=== PATIENT | male | born 1945 | race Caucasian/White ===

== ENCOUNTER → 2018-12-29 | Outpatient (CLI) | payer MEDICARE, OTHER ==
[~2018-12-29] MED LIST: ASPI81CH PO; ASPI81EC PO; Aspir 8181 MG; CEPH250A PO; CLOBET30L TP; Chondroitin Su250 MG PO; Cipro500 MG PO; FERR325 PO; FINA5 PO; FURO80 PO; Fluoxetine HCl10 MG PO; GLUC500 PO; HYDACE5325 PO; HYDR1TAB94 PO; IBUP600 PO; LAVAP17G PO; LISHYD2025 PO; LISI5 PO; MELO7.5 PO; MIRT15 PO; POLY500 PO; POTA10T PO; POTCHL20ER PO; TAMS.4ER PO; VOLTAREN GEL 1% TOP
== END | disposition home or self-care (01) ==
LOC: LAB SHORT 12:10 → LAB EV 12:10
DX: N39.0 Urinary tract infection, site not specified (principal)
CPT/HCPCS: 87077; 87086; 87186

== ENCOUNTER → 2020-07-05 | Outpatient (CLI) | payer MEDICARE, OTHER ==
[2020-07-05 18:05] LABS: Source, Urine Clean Catch
[2020-07-05 18:18] LABS: Appearance, Urine Clear (Clear); Bacteria Not Seen /hpf; Bilirubin, Urine Neg (Neg); Blood, Urine Neg (Neg); Color, Urine Yellow (P-Yellow); Glucose Qualitative, Urine Neg (Normal); Ketones, Urine Neg (Neg); Leukocyte Esterase, Urine Neg (Neg); Nitrite, Urine Pos (Neg); Protein, Urine Neg (Neg); Red Blood Cells, Urine Not Seen /hpf (0-2); Squamous Epithelial Cells Rare /hpf (Few); Urobilinogen, Urine NORM (Normal); White Blood Cells, Urine 0-2 /hpf (0-5)
== END | disposition home or self-care (01) ==
LOC: LAB EV 17:05 → LAB SHORT 17:05
PROVIDERS: Physician Assistant
DX: R30.0 Dysuria (principal)
CPT/HCPCS: 81001; 87077; 87086; 87186

== ENCOUNTER → 2020-07-25 | Outpatient (CLI) | payer MEDICARE, OTHER ==
[2020-07-25 13:03] LABS: Source, Urine Voided
[2020-07-25 14:41] LABS: Appearance, Urine Clear (Clear); Bilirubin, Urine Neg (Neg); Blood, Urine Neg (Neg); Color, Urine Yellow (P-Yellow); Glucose Qualitative, Urine Neg (Normal); Ketones, Urine Neg (Neg); Leukocyte Esterase, Urine Neg (Neg); Nitrite, Urine Neg (Neg); Protein, Urine Neg (Neg); Urobilinogen, Urine NORM (Normal)
== END | disposition home or self-care (01) ==
LOC: LAB SHORT 12:53 → LAB EV 12:53
PROVIDERS: Physician Assistant
DX: N39.0 Urinary tract infection, site not specified (principal)
CPT/HCPCS: 81003

== ENCOUNTER → 2020-10-08 | Outpatient (CLI) | payer MEDICARE, OTHER ==
[2020-10-08 11:09] LABS: Source, Urine Clean Catch
[2020-10-08 12:24] LABS: Appearance, Urine Clear (Clear); Bilirubin, Urine Neg (Neg); Blood, Urine Neg (Neg); Color, Urine Yellow (P-Yellow); Glucose Qualitative, Urine Neg (Normal); Ketones, Urine Neg (Neg); Leukocyte Esterase, Urine Neg (Neg); Nitrite, Urine Neg (Neg); Protein, Urine Neg (Neg); Specific Gravity, Urine 1.015 (1.003-1.022); Urobilinogen, Urine NORM (Normal)
== END | disposition home or self-care (01) ==
LOC: LAB SHORT 10:10 → LAB EV 10:10
PROVIDERS: Physician Assistant
DX: N39.0 Urinary tract infection, site not specified (principal)
CPT/HCPCS: 81003

== ENCOUNTER → 2021-02-11 | Outpatient (CLI) | payer MEDICARE, OTHER ==
[2021-02-11 13:39] LABS: Source, Urine Voided
[2021-02-11 16:49] LABS: Appearance, Urine Clear (Clear); Bilirubin, Urine Neg (Neg); Blood, Urine Neg (Neg); Glucose Qualitative, Urine Neg (Neg); Ketones, Urine Neg (Neg); Leukocyte Esterase, Urine Neg (Neg); Nitrite, Urine Neg (Neg); Protein, Urine Neg (Neg); Urobilinogen, Urine NORM (Normal)
[2021-02-11 17:20] LABS: Color, Urine No Color (P-Yellow)
[2021-02-11 17:21] LABS: Specific Gravity, Urine 1.005 (1.003-1.022)
== END | disposition home or self-care (01) ==
LOC: LAB SHORT 12:00
PROVIDERS: Family Medicine
DX: N39.0 Urinary tract infection, site not specified (principal); N40.1 Benign prostatic hyperplasia with lower urinary tract symptoms; N13.8 Other obstructive and reflux uropathy; R32 Unspecified urinary incontinence; E11.40 Type 2 diabetes mellitus with diabetic neuropathy, unspecified; Z46.6 Encounter for fitting and adjustment of urinary device
CPT/HCPCS: 81003

== ENCOUNTER → 2021-03-26 | Outpatient (CLI) | payer MEDICARE, OTHER ==
[2021-03-26 12:22] LABS: BASOPHILS ABSOLUTE AUTO 0.06 K/mm3 (0.00-0.23); BASOPHILS PERCENT AUTO 1 % (0-2); EOSINOPHILS ABSOLUTE AUTO 0.28 K/mm3 (0.00-0.68); EOSINOPHILS PERCENT AUTO 5 % (0-6); Hematocrit 41.7 % (37.0-53.0); Hemoglobin 13.9 g/dL (13.5-17.5); IMMATURE GRAN ABSOLUTE AUTO 0.05 K/mm3 (0.00-0.10); IMMATURE GRAN PERCENT AUTO 1 % (0-1); LYMPHOCYTES ABSOLUTE AUTO 1.52 K/mm3 (0.84-5.20); LYMPHOCYTES PERCENT AUTO 26 % (21-46); MONOCYTES ABSOLUTE AUTO 0.87 K/mm3 (0.16-1.47); MONOCYTES PERCENT AUTO 15 % (4-13); Mean Corpuscular HGB 31.4 pg (26.0-34.0); Mean Corpuscular HGB Conc 33.3 g/dL (31.5-36.5); Mean Corpuscular Volume 94 fL (80-100); Mean Platelet Volume 11.2 fL (9.1-12.4); NEUTROPHILS PERCENT AUTO 53 % (41-73); Platelet Count 199 K/mm3 (150-400); RDW Coefficient Variation 13.1 % (11.7-14.2); RDW Standard Deviation 45.1 fL (35.1-46.3); Red Blood Cell Count 4.43 M/mm3 (4.30-5.90); White Blood Cell Count 5.88 K/mm3 (4.00-11.30)
[2021-03-26 14:05] LABS: Alanine Aminotransfer (ALT/SGP 23 U/L (12-78); Albumin, Blood 3.5 g/dL (3.4-5.0); Albumin/Globulin Ratio 1.2 (0.8-1.8); Alk Phos 59 U/L (50-136); Anion Gap 4 mmol/L (6-16); Aspartate Aminotrans (AST/SGOT 15 U/L (12-37); Blood Urea Nitrogen 18 mg/dL (8-24); Bun/Creatinine Ratio 14.2 (12.0-20.0); CHOL/HDL RATIO 3.3; CO2, Blood 27 mmol/L (21-32); Calcium, Blood 8.4 mg/dL (8.5-10.1); Chloride, Blood 112 mmol/L (98-108); Cholesterol 129 mg/dL (50-200); Creatinine, Blood 1.27 mg/dL (0.60-1.20); Globulin, Blood 2.9 g/dL (2.2-4.0); Glomerular Filtration Rate 59 (60-); Glucose, Blood 75 mg/dL (70-99); HDL Cholesterol 39 mg/dL (>39); Low Density Lipoprotein Chol 80 mg/dL (0-110); Prostate Specific Antigen 0.744 ng/mL (0.000-4.000); Sodium, Blood 143 mmol/L (136-145); Total Protein, Blood 6.4 g/dL (6.4-8.2); Triglycerides 51 mg/dL (30-160); Very Low Density Lipoprot Chol 10 mg/dL (6-32)
== END | disposition home or self-care (01) ==
LOC: LAB SHORT 10:11 → LAB 10:11
PROVIDERS: Physician Assistant
DX: Z12.5 Encounter for screening for malignant neoplasm of prostate (principal); E11.42 Type 2 diabetes mellitus with diabetic polyneuropathy; E78.5 Hyperlipidemia, unspecified; I10 Essential (primary) hypertension; D64.9 Anemia, unspecified
CPT/HCPCS: 80053; 80061; 83036; 85025; G0103

== ENCOUNTER → 2021-05-23 | Outpatient (CLI) | payer MEDICARE, OTHER ==
[2021-05-23 15:58] LABS: BASOPHILS ABSOLUTE AUTO 0.06 K/mm3 (0.00-0.23); BASOPHILS PERCENT AUTO 1 % (0-2); EOSINOPHILS ABSOLUTE AUTO 0.14 K/mm3 (0.00-0.68); EOSINOPHILS PERCENT AUTO 1 % (0-6); Hematocrit 39.4 % (37.0-53.0); IMMATURE GRAN ABSOLUTE AUTO 0.05 K/mm3 (0.00-0.10); IMMATURE GRAN PERCENT AUTO 1 % (0-1); LYMPHOCYTES PERCENT AUTO 12 % (21-46); MONOCYTES ABSOLUTE AUTO 1.31 K/mm3 (0.16-1.47); MONOCYTES PERCENT AUTO 13 % (4-13); Mean Corpuscular HGB 31.3 pg (26.0-34.0); Mean Corpuscular Volume 95 fL (80-100); Mean Platelet Volume 11.6 fL (9.1-12.4); NEUTROPHILS ABSOLUTE AUTO 7.48 K/mm3 (1.96-9.15); NEUTROPHILS PERCENT AUTO 73 % (41-73); Platelet Count 230 K/mm3 (150-400); RDW Coefficient Variation 13.1 % (11.7-14.2); RDW Standard Deviation 45.6 fL (35.1-46.3); Red Blood Cell Count 4.15 M/mm3 (4.30-5.90); White Blood Cell Count 10.24 K/mm3 (4.00-11.30)
[2021-05-23 15:59] LABS: Alanine Aminotransfer (ALT/SGP 32 U/L (12-78); Albumin, Blood 3.2 g/dL (3.4-5.0); Albumin/Globulin Ratio 1.1 (0.8-1.8); Alk Phos 54 U/L (50-136); Anion Gap 4 mmol/L (6-16); Aspartate Aminotrans (AST/SGOT 38 U/L (12-37); Bilirubin, Total 0.9 mg/dL (0.1-1.0); Blood Urea Nitrogen 15 mg/dL (8-24); Bun/Creatinine Ratio 13.2 (12.0-20.0); CHOL/HDL RATIO 3.3; CO2, Blood 27 mmol/L (21-32); Calcium, Blood 8.6 mg/dL (8.5-10.1); Chloride, Blood 112 mmol/L (98-108); Cholesterol 117 mg/dL (50-200); Creatinine, Blood 1.14 mg/dL (0.60-1.20); Globulin, Blood 2.8 g/dL (2.2-4.0); Glomerular Filtration Rate >60 (60-); Glucose, Blood 76 mg/dL (70-99); HDL Cholesterol 35 mg/dL (>39); LDL/HDL RATIO 2.1; Low Density Lipoprotein Chol 74 mg/dL (0-110); Potassium, Blood 4.5 mmol/L (3.5-5.5); Sodium, Blood 143 mmol/L (136-145); Triglycerides 39 mg/dL (30-160); Very Low Density Lipoprot Chol 7 mg/dL (6-32)
== END | disposition home or self-care (01) ==
LOC: LAB SHORT 09:20 → LAB 09:20
PROVIDERS: Family Medicine
DX: E11.42 Type 2 diabetes mellitus with diabetic polyneuropathy (principal); N40.1 Benign prostatic hyperplasia with lower urinary tract symptoms; E78.5 Hyperlipidemia, unspecified; D64.9 Anemia, unspecified; M10.9 Gout, unspecified; I10 Essential (primary) hypertension
CPT/HCPCS: 80053; 80061; 83036; 85025

== ENCOUNTER → 2021-08-08 | Outpatient (CLI) | payer MEDICARE, OTHER | END | disposition home or self-care (01) | LOC: LAB SHORT 16:42 → LAB 16:42 | DX: R31.9 Hematuria, unspecified (principal) | CPT/HCPCS: 87077; 87086; 87186 ==

== ENCOUNTER 2021-10-24 06:40 | Day surgery (SDC) | payer MEDICARE, OTHER ==
[~2021-10-24] VITALS: Ht 167.6 cm; Wt 93.1 kg
[~2021-10-24 06:40] MED LIST changes: +AMLO5 PO; -Aspir 8181 MG; +Aspir 8181 MG PO; +Colace100 MG PO; -FERR325 PO; +FERSU300 PO; +QUET100 PO; +TRIM100 PO; +ZESTRIL40 M2 PO
--- NOTE | 2021-10-24 09:32 | NUR ---
0910 PATIENT RETURNED FROM THE [facility]ATHLAB S/P SUPRAPUBIC CATHETER PLACEMENT. STAYFIX IN PLACE AND DRAINBAG CONNECTED. DRAINING CLEAR PALE YELLOW URINE. PATIENT CONNECTED TO THE MONITOR AND CALL LIGHT IN REACH. SIDE RAILS UP X 2. VVS. NO PAIN NOTED. FAMILY AT THE BEDSIDE.
--- NOTE | 2021-10-24 10:29 | NUR ---
PATIENT ATE BREAKFAST WITH MINIAL ASSIST FROM THE BROTHER. VVS. NO NAUSEA NOTED. AFTER BREAKFAST PATIENT STAFF AND BROTHER ASSISTED PATIENT WITH DRESSING AND [facility] WAS CALLED. ONCE THEY ARRIVED PIV WAS REMOVED AND PRESSURE DRESSING WAS APPLIED TO THE PIV SITE. NO BLEEDING NOTED. PATIENT WAS TRANSFERRED TO HIS WHEELCHAIR POSITION AND DISCHARGED TO [facility]ULT HOME [facility]ARE FACILITY. ABDOMINAL BINDER WAS IN PLACE ORDERED. DISCHARGE INSTRUCTIONS WERE REVIEWED WITH THE BROTHER AND COPIES GIVEN.
== END 2021-10-24 10:30 | disposition home or self-care (01) ==
LOC: MHTC 06:40
DX: N32.0 Bladder-neck obstruction (principal); I10 Essential (primary) hypertension; E11.9 Type 2 diabetes mellitus without complications; Z79.899 Other long term (current) drug therapy
CPT/HCPCS: 76937; 99152; 99153; C1729; C1769; J2250; J3010; J7030; Q9967

== ENCOUNTER → 2022-02-06 | Outpatient (CLI) | payer MEDICARE, OTHER ==
[2022-02-06 10:38] LABS: BASOPHILS ABSOLUTE AUTO 0.05 K/mm3 (0.00-0.23); BASOPHILS PERCENT AUTO 1 % (0-2); EOSINOPHILS ABSOLUTE AUTO 0.16 K/mm3 (0.00-0.68); EOSINOPHILS PERCENT AUTO 2 % (0-6); Hematocrit 44.7 % (37.0-53.0); Hemoglobin 14.6 g/dL (13.5-17.5); IMMATURE GRAN ABSOLUTE AUTO 0.11 K/mm3 (0.00-0.10); IMMATURE GRAN PERCENT AUTO 1 % (0-1); LYMPHOCYTES ABSOLUTE AUTO 1.39 K/mm3 (0.84-5.20); LYMPHOCYTES PERCENT AUTO 18 % (21-46); MONOCYTES ABSOLUTE AUTO 0.94 K/mm3 (0.16-1.47); MONOCYTES PERCENT AUTO 12 % (4-13); Mean Corpuscular HGB 31.5 pg (26.0-34.0); Mean Corpuscular HGB Conc 32.7 g/dL (31.5-36.5); Mean Corpuscular Volume 96 fL (80-100); Mean Platelet Volume 11.6 fL (9.1-12.4); NEUTROPHILS ABSOLUTE AUTO 5.23 K/mm3 (1.96-9.15); NEUTROPHILS PERCENT AUTO 67 % (41-73); Platelet Count 215 K/mm3 (150-400); RDW Coefficient Variation 13.3 % (11.7-14.2); RDW Standard Deviation 48.2 fL (35.1-46.3); Red Blood Cell Count 4.64 M/mm3 (4.30-5.90); White Blood Cell Count 7.88 K/mm3 (4.00-11.30)
[2022-02-06 11:51] LABS: Alanine Aminotransfer (ALT/SGP 29 U/L (12-78); Albumin, Blood 3.4 g/dL (3.4-5.0); Albumin/Globulin Ratio 1.1 (0.8-1.8); Alk Phos 60 U/L (50-136); Anion Gap 5 mmol/L (6-16); Aspartate Aminotrans (AST/SGOT 15 U/L (12-37); Blood Urea Nitrogen 20 mg/dL (8-24); Bun/Creatinine Ratio 19.8 (12.0-20.0); CHOL/HDL RATIO 4.3; CO2, Blood 27 mmol/L (21-32); Calcium, Blood 8.3 mg/dL (8.5-10.1); Chloride, Blood 107 mmol/L (98-108); Cholesterol 142 mg/dL (50-200); Creatinine, Blood 1.01 mg/dL (0.60-1.20); Glomerular Filtration Rate >60 (60-); Glucose, Blood 82 mg/dL (70-99); HDL Cholesterol 33 mg/dL (>39); Iron Serum 151 ug/dL (65-175); LDL/HDL RATIO 2.8; Low Density Lipoprotein Chol 92 mg/dL (0-110); Percent Saturation 56.6 % (20.0-50.0); Potassium, Blood 4.3 mmol/L (3.5-5.5); Sodium, Blood 139 mmol/L (136-145); Thyroid Stimulating Hormone 0.625 uIU/mL (0.360-4.800); Total Iron Binding Capacity 267 ug/dL (250-450); Total Protein, Blood 6.4 g/dL (6.4-8.2); Triglycerides 84 mg/dL (30-160); Very Low Density Lipoprot Chol 16 mg/dL (6-32)
== END | disposition home or self-care (01) ==
LOC: LAB SHORT 09:43
PROVIDERS: Physician Assistant
DX: E11.42 Type 2 diabetes mellitus with diabetic polyneuropathy (principal); I10 Essential (primary) hypertension; E78.5 Hyperlipidemia, unspecified; D64.9 Anemia, unspecified
CPT/HCPCS: 80053; 80061; 83036; 83540; 83550; 84443; 85025

== ENCOUNTER 2022-02-19 12:15 | Day surgery (SDC) | payer MEDICARE, OTHER ==
[~2022-02-19] VITALS: Ht 175.3 cm; Wt 93.2 kg
--- NOTE | 2022-02-19 12:49 | NUR ---
02/19/22 1249 BERNICE TAVAREZ PT WITH ORGANIC BRAIN SYNDROME AND DEVELOPMENTAL DELAY. PT IS MOBILE IN , LIVES IN [facility] LOCALLY WITH BROTHER GUARDIAN/CAREGIVER. HE ACCOMPANIES HIM TODAY AND IS HISTORIAN FOR PT'S MEDICAL CONDITIONS.
--- NOTE | 2022-02-19 14:31 | NUR ---
02/19/22 1431 Alannah Galvez BUPIVICAINE 0.5% MIXED 1:1 WITH LIDOCAINE 1% TO CREATE A LOCAL SOLUTION.
--- NOTE | 2022-02-19 15:57 | NUR ---
02/19/22 1557 LUIS ANGEL FRASER PT NEEDED COMPLETE ASSIST FOR DRESSING AND TRANSFERRING. PT WAS STABLE AND HAD NO COMPLAIN OF PAIN.
== END 2022-02-19 15:55 | disposition home or self-care (01) ==
LOC: ORSCSDS 12:15
PROVIDERS: Podiatrist
PROC: 0QPR04Z Removal of Internal Fixation Device from Left Toe Phalanx, Open Approach (ICD-10-PCS; principal; 2022-02-19 13:30)
DX: T84.84XA Pain due to internal orthopedic prosthetic devices, implants and grafts, initial encounter (principal); I10 Essential (primary) hypertension; G47.33 Obstructive sleep apnea (adult) (pediatric); E11.9 Type 2 diabetes mellitus without complications; Z79.899 Other long term (current) drug therapy; Z79.82 Long term (current) use of aspirin
CPT/HCPCS: 82947; A9270; J0690; J1100; J2250; J2370; J2405; J2704; J3010; J7120

== ENCOUNTER → 2022-08-11 | Outpatient (CLI) | payer MEDICARE, OTHER ==
[2022-08-11 10:17] LABS: Source, Urine Straight Cath
[2022-08-11 10:54] LABS: Appearance, Urine Clear (Clear); Bilirubin, Urine Neg (Neg); Blood, Urine Neg (Neg); Color, Urine Yellow (P-Yellow); Glucose Qualitative, Urine Neg (Neg); Ketones, Urine Neg (Neg); Leukocyte Esterase, Urine 2+ (Neg); Nitrite, Urine Neg (Neg); Protein, Urine 1+ (Neg); Urobilinogen, Urine NORM (Normal); pH, Urine 6.5 (5.0-8.0)
[2022-08-11 11:03] LABS: Bacteria Mod /hpf; Red Blood Cells, Urine 0-2 /hpf (0-2); Squamous Epithelial Cells Few /hpf (Few)
== END ==
LOC: LAB SHORT 09:45 → LAB 09:45
PROVIDERS: Physician Assistant
DX: N39.0 Urinary tract infection, site not specified (principal)
CPT/HCPCS: 81001; 87077; 87086; 87186

== ENCOUNTER → 2022-10-29 | Outpatient (CLI) | payer MEDICARE, OTHER ==
[2022-10-29 13:13] LABS: C-REACTIVE PROTEIN, EXT RANGE <0.290 mg/dL (0.000-0.300)
[2022-10-29 13:22] LABS: Alanine Aminotransfer (ALT/SGP 22 U/L (12-78); Albumin, Blood 3.3 g/dL (3.4-5.0); Albumin/Globulin Ratio 1.2 (0.8-1.8); Alk Phos 53 U/L (50-136); Anion Gap 3 mmol/L (6-16); Aspartate Aminotrans (AST/SGOT 16 U/L (12-37); Bilirubin, Total 0.7 mg/dL (0.1-1.0); Blood Urea Nitrogen 16 mg/dL (8-24); Bun/Creatinine Ratio 16.6 (12.0-20.0); CO2, Blood 27 mmol/L (21-32); Calcium, Blood 8.5 mg/dL (8.5-10.1); Chloride, Blood 112 mmol/L (98-108); Creatinine, Blood 0.96 mg/dL (0.60-1.20); Globulin, Blood 2.8 g/dL (2.2-4.0); Glomerular Filtration Rate 82 (60-); Glucose, Blood 87 mg/dL (70-99); Potassium, Blood 3.8 mmol/L (3.5-5.5); Sodium, Blood 142 mmol/L (136-145); Total Protein, Blood 6.1 g/dL (6.4-8.2)
== END | disposition home or self-care (01) ==
LOC: LAB SHORT 09:46
PROVIDERS: Physician Assistant
DX: E78.5 Hyperlipidemia, unspecified (principal); N40.1 Benign prostatic hyperplasia with lower urinary tract symptoms; E11.9 Type 2 diabetes mellitus without complications; I10 Essential (primary) hypertension
CPT/HCPCS: 80053; 83036; 84153; 86140

== ENCOUNTER → 2022-12-31 | Outpatient (CLI) | payer MEDICARE, OTHER ==
[2022-12-31 14:41] LABS: CHOL/HDL RATIO 3.7; Cholesterol 136 mg/dL (50-200); HDL Cholesterol 37 mg/dL (>39); LDL/HDL RATIO 2.4; Low Density Lipoprotein Chol 88 mg/dL (0-110); Triglycerides 54 mg/dL (30-160); Very Low Density Lipoprot Chol 10 mg/dL (6-32)
== END | disposition home or self-care (01) ==
LOC: LAB 10:50 → LAB SHORT 10:50
PROVIDERS: Physician Assistant
DX: E78.5 Hyperlipidemia, unspecified (principal)
CPT/HCPCS: 80061

== ENCOUNTER → 2023-07-29 | Outpatient (CLI) | payer MEDICARE, OTHER ==
[2023-07-29 16:37] LABS: Source, Urine Voided
[2023-07-29 18:50] LABS: Bilirubin, Urine Neg (Neg); Blood, Urine 4+ (Neg); Color, Urine Yellow (P-Yellow); Glucose Qualitative, Urine Neg (Neg); Ketones, Urine Neg (Neg); Leukocyte Esterase, Urine 1+ (Neg); Nitrite, Urine Neg (Neg); Protein, Urine 1+ (Neg); Specific Gravity, Urine 1.015 (1.003-1.022); Urobilinogen, Urine NORM (Normal)
[2023-07-29 19:39] LABS: Appearance, Urine Hazy (Clear)
[2023-07-29 19:44] LABS: Amorphous Light (0-Heavy); Bacteria Many /hpf; Mucus Light (0-Heavy); Squamous Epithelial Cells Few /hpf (Few)
== END ==
LOC: LAB 16:35 → LAB SHORT 16:35
PROVIDERS: Physician Assistant
DX: R30.0 Dysuria (principal)
CPT/HCPCS: 81001; 87077; 87086; 87186

== ENCOUNTER → 2023-11-26 | Outpatient (CLI) | payer MEDICARE, OTHER ==
[2023-11-26 14:21] LABS: BASOPHILS ABSOLUTE AUTO 0.03 K/mm3 (0.00-0.23); BASOPHILS PERCENT AUTO 1 % (0-2); EOSINOPHILS ABSOLUTE AUTO 0.14 K/mm3 (0.00-0.68); EOSINOPHILS PERCENT AUTO 3 % (0-6); Hematocrit 36.9 % (37.0-53.0); Hemoglobin 12.1 g/dL (13.5-17.5); IMMATURE GRAN ABSOLUTE AUTO 0.02 K/mm3 (0.00-0.10); IMMATURE GRAN PERCENT AUTO 0 % (0-1); LYMPHOCYTES ABSOLUTE AUTO 1.08 K/mm3 (0.84-5.20); LYMPHOCYTES PERCENT AUTO 23 % (21-46); MONOCYTES ABSOLUTE AUTO 0.56 K/mm3 (0.16-1.47); MONOCYTES PERCENT AUTO 12 % (4-13); Mean Corpuscular HGB 31.9 pg (26.0-34.0); Mean Corpuscular HGB Conc 32.8 g/dL (31.5-36.5); Mean Corpuscular Volume 97 fL (80-100); Mean Platelet Volume 11.5 fL (9.1-12.4); NEUTROPHILS ABSOLUTE AUTO 2.93 K/mm3 (1.96-9.15); NEUTROPHILS PERCENT AUTO 62 % (41-73); Platelet Count 181 K/mm3 (150-400); RDW Coefficient Variation 13.8 % (11.7-14.2); RDW Standard Deviation 49.8 fL (35.1-46.3); Red Blood Cell Count 3.79 M/mm3 (4.30-5.90); White Blood Cell Count 4.76 K/mm3 (4.00-11.30)
[2023-11-28 01:06] LABS: A/G RATIO 1.9 (1.2-2.2); BILIRUBIN, TOTAL 0.5 mg/dL (0.0-1.2); CALCIUM, SERUM 8.8 mg/dL (8.6-10.2); CREATININE, SERUM 0.98 mg/dL (0.76-1.27); GLOBULIN, TOTAL 1.9 g/dL (1.5-4.5); POTASSIUM, SERUM 4.8 mmol/L (3.5-5.2); PROTEIN, TOTAL, SERUM 5.6 g/dL (6.0-8.5)
== END ==
LOC: LAB SHORT 12:49 → LAB 12:49
PROVIDERS: Physician Assistant
DX: E11.42 Type 2 diabetes mellitus with diabetic polyneuropathy (principal); I10 Essential (primary) hypertension
CPT/HCPCS: 80053; 83036; 85025

== ENCOUNTER → 2024-01-25 | Outpatient (CLI) | payer MEDICARE, OTHER ==
[2024-01-25 13:29] LABS: Source, Urine Voided
[2024-01-25 14:29] LABS: Appearance, Urine Clear (Clear); Bilirubin, Urine Neg (Neg); Blood, Urine 4+ (Neg); Color, Urine Yellow (P-Yellow); Glucose Qualitative, Urine Neg (Neg); Ketones, Urine Neg (Neg); Leukocyte Esterase, Urine 2+ (Neg); Nitrite, Urine Neg (Neg); Protein, Urine 2+ (Neg); Specific Gravity, Urine 1.015 (1.003-1.022); Urobilinogen, Urine NORM (Normal)
[2024-01-25 14:49] LABS: Bacteria Few /hpf; Squamous Epithelial Cells Rare /hpf (Few)
== END | disposition home or self-care (01) ==
LOC: LAB SHORT 12:45 → LAB 12:45
PROVIDERS: Physician Assistant
DX: N39.0 Urinary tract infection, site not specified (principal)
CPT/HCPCS: 81001; 87077; 87086; 87186

== ENCOUNTER → 2024-03-24 | Outpatient (CLI) | payer MEDICARE, OTHER ==
[2024-03-24 11:27] LABS: Source, Urine Voided
[2024-03-24 13:14] LABS: Appearance, Urine Hazy (Clear); Bilirubin, Urine Neg (Neg); Blood, Urine 1+ (Neg); Color, Urine Yellow (P-Yellow); Glucose Qualitative, Urine Neg (Neg); Ketones, Urine Neg (Neg); Leukocyte Esterase, Urine 2+ (Neg); Nitrite, Urine Neg (Neg); Protein, Urine Neg (Neg); Urobilinogen, Urine NORM (Normal)
[2024-03-24 13:24] LABS: Amorphous Mod (0-Heavy); Bacteria Few /hpf; Squamous Epithelial Cells Rare /hpf (Few)
== END ==
LOC: LAB 11:25 → LAB SHORT 11:25
PROVIDERS: Physician Assistant
DX: N40.1 Benign prostatic hyperplasia with lower urinary tract symptoms (principal); N13.8 Other obstructive and reflux uropathy; N39.0 Urinary tract infection, site not specified; Z43.5 Encounter for attention to cystostomy
CPT/HCPCS: 81001; 87077; 87086; 87186

== ENCOUNTER → 2024-04-24 | Outpatient (CLI) | payer MEDICARE, OTHER ==
[2024-04-24 16:57] LABS: Source, Urine Voided
[2024-04-24 17:10] LABS: Appearance, Urine Hazy (Clear); Bilirubin, Urine Neg (Neg); Blood, Urine 2+ (Neg); Glucose Qualitative, Urine Neg (Neg); Ketones, Urine Neg (Neg); Leukocyte Esterase, Urine 3+ (Neg); Nitrite, Urine Neg (Neg); Protein, Urine Neg (Neg); Specific Gravity, Urine 1.005 (1.003-1.022); Urobilinogen, Urine NORM (Normal)
[2024-04-24 17:47] LABS: Color, Urine Pale Yellow (P-Yellow)
[2024-04-24 17:48] LABS: Bacteria Mod /hpf; Red Blood Cells, Urine 0-2 /hpf (0-2); Squamous Epithelial Cells Few /hpf (Few)
== END | disposition home or self-care (01) ==
LOC: LAB 14:53 → LAB SHORT 14:53
PROVIDERS: Physician Assistant
DX: N40.1 Benign prostatic hyperplasia with lower urinary tract symptoms (principal); R32 Unspecified urinary incontinence
CPT/HCPCS: 81001; 87077; 87086; 87186

== ENCOUNTER → 2024-09-19 | Outpatient (CLI) | payer MEDICARE, OTHER ==
[2024-09-19 16:44] LABS: Source, Urine Voided
[2024-09-19 17:40] LABS: Appearance, Urine Hazy (Clear); Bilirubin, Urine Neg (Neg); Blood, Urine 5+ (Neg); Glucose Qualitative, Urine Neg (Neg); Ketones, Urine Neg (Neg); Leukocyte Esterase, Urine 1+ (Neg); Nitrite, Urine Neg (Neg); Protein, Urine 1+ (Neg); Urobilinogen, Urine NORM (Normal); pH, Urine 6.5 (5.0-8.0)
[2024-09-19 18:05] LABS: Color, Urine Pale Yellow (P-Yellow)
[2024-09-19 18:07] LABS: Bacteria Many /hpf; Renal Epithelial Few /hpf (0-Rare); Squamous Epithelial Cells Mod /hpf (Few)
== END ==
LOC: LAB SHORT 16:15 → LAB 16:15
PROVIDERS: Physician Assistant
DX: N39.0 Urinary tract infection, site not specified (principal)
CPT/HCPCS: 81001; 87086

== ENCOUNTER 2025-01-28 10:41 | Emergency (ER) | payer MEDICARE, OTHER ==
[~2025-01-28] VITALS: Ht 182.9 cm; Wt 64.9 kg
[2025-01-28 10:46] VITALS: BP 129/71
[2025-01-28 11:41] LABS: BASOPHILS ABSOLUTE AUTO 0.05 K/mm3 (0.00-0.23); BASOPHILS PERCENT AUTO 1 % (0-2); EOSINOPHILS ABSOLUTE AUTO 0.08 K/mm3 (0.00-0.68); EOSINOPHILS PERCENT AUTO 1 % (0-6); Hematocrit 36.5 % (37.0-53.0); Hemoglobin 12.4 g/dL (13.5-17.5); IMMATURE GRAN ABSOLUTE AUTO 0.06 K/mm3 (0.00-0.10); IMMATURE GRAN PERCENT AUTO 1 % (0-1); LYMPHOCYTES ABSOLUTE AUTO 1.11 K/mm3 (0.84-5.20); LYMPHOCYTES PERCENT AUTO 12 % (21-46); MONOCYTES ABSOLUTE AUTO 1.26 K/mm3 (0.16-1.47); MONOCYTES PERCENT AUTO 13 % (4-13); Mean Corpuscular HGB 31.7 pg (26.0-34.0); Mean Corpuscular Volume 93 fL (80-100); NEUTROPHILS ABSOLUTE AUTO 6.81 K/mm3 (1.96-9.15); NEUTROPHILS PERCENT AUTO 73 % (41-73); RDW Coefficient Variation 14.4 % (11.7-14.2); RDW Standard Deviation 49.3 fL (35.1-46.3); Red Blood Cell Count 3.91 M/mm3 (4.30-5.90); White Blood Cell Count 9.37 K/mm3 (4.00-11.30)
[2025-01-28] MEDS ORDERED: NS 1,000 ML IV SCH (11:50)
[2025-01-28 11:52] LABS: Albumin, Blood 3.1 g/dL (3.4-5.0); Bilirubin, Total 1.1 mg/dL (0.1-1.0); Bun/Creatinine Ratio 18.8 (12.0-20.0); Calcium, Blood 8.2 mg/dL (8.5-10.1); Creatinine, Blood 1.01 mg/dL (0.60-1.20); Potassium, Blood 4.5 mmol/L (3.5-5.5); Total Protein, Blood 6.1 g/dL (6.4-8.2)
[2025-01-28 12:00] LABS: Mean Platelet Volume 11.6 fL (9.1-12.4); Platelet Count 161 K/mm3 (150-400)
[2025-01-28 12:20] LABS: Source, Urine Suprapubic Cath
[2025-01-28 12:23] LABS: Appearance, Urine Hazy (Clear); Bilirubin, Urine Neg (Neg); Blood, Urine 3+ (Neg); Color, Urine Yellow (P-Yellow); Glucose Qualitative, Urine Neg (Neg); Ketones, Urine Neg (Neg); Leukocyte Esterase, Urine 3+ (Neg); Nitrite, Urine Neg (Neg); Protein, Urine 2+ (Neg); Specific Gravity, Urine 1.015 (1.003-1.022); Urobilinogen, Urine NORM (Normal)
[2025-01-28 12:31] LABS: White Blood Cells, Urine 25-50 /hpf (0-5)
[2025-01-28 12:32] LABS: Bacteria Many /hpf; Squamous Epithelial Cells Not Seen /hpf (Few); Transitional Epithelial Cells Rare /hpf (0-Rare)
[2025-01-28 12:33] LABS: Renal Epithelial Few /hpf (0-Rare)
[2025-01-28] MEDS ORDERED: CEFP200 PO (12:51)
[2025-02-01] MEDS ORDERED: AMOCLA875 PO (09:15)
== END 2025-01-28 15:05 | disposition home or self-care (01) ==
LOC: ER 10:41
PROVIDERS: Student in an Organized Health Care Education/Training Program
DX: N39.0 Urinary tract infection, site not specified (principal); Z87.891 Personal history of nicotine dependence; I10 Essential (primary) hypertension; K21.9 Gastro-esophageal reflux disease without esophagitis; Z79.84 Long term (current) use of oral hypoglycemic drugs; Z79.891 Long term (current) use of opiate analgesic; Z79.1 Long term (current) use of non-steroidal anti-inflammatories (NSAID); Z79.82 Long term (current) use of aspirin; Z79.83 Long term (current) use of bisphosphonates; Z79.899 Other long term (current) drug therapy
CPT/HCPCS: 51705; 80053; 81001; 83605; 85025; 87077; 87086; 87186; 93005; 93010; 96360-59; 99284-25; J7030

== ENCOUNTER 2025-02-16 16:32 | Inpatient (IN) | payer MEDICARE, OTHER ==
[~2025-02-16] VITALS: Ht 172.7 cm; Wt 74.0 kg
[~2025-02-16 16:32] MED LIST changes: +AMOCLA875 PO; +CEFP200 PO
[2025-02-16 17:22] LABS: BASOPHILS ABSOLUTE AUTO 0.05 K/mm3 (0.00-0.23); BASOPHILS PERCENT AUTO 0 % (0-2); EOSINOPHILS PERCENT AUTO 0 % (0-6); Hemoglobin 12.2 g/dL (13.5-17.5); IMMATURE GRAN ABSOLUTE AUTO 0.16 K/mm3 (0.00-0.10); IMMATURE GRAN PERCENT AUTO 1 % (0-1); LYMPHOCYTES ABSOLUTE AUTO 0.45 K/mm3 (0.84-5.20); LYMPHOCYTES PERCENT AUTO 2 % (21-46); MONOCYTES ABSOLUTE AUTO 1.58 K/mm3 (0.16-1.47); MONOCYTES PERCENT AUTO 8 % (4-13); Mean Corpuscular HGB 32.5 pg (26.0-34.0); Mean Corpuscular HGB Conc 34.9 g/dL (31.5-36.5); Mean Corpuscular Volume 93 fL (80-100); Mean Platelet Volume 11.3 fL (9.1-12.4); NEUTROPHILS ABSOLUTE AUTO 17.55 K/mm3 (1.96-9.15); NEUTROPHILS PERCENT AUTO 89 % (41-73); Platelet Count 211 K/mm3 (150-400); RDW Coefficient Variation 13.9 % (11.7-14.2); RDW Standard Deviation 47.5 fL (35.1-46.3); Red Blood Cell Count 3.75 M/mm3 (4.30-5.90); White Blood Cell Count 19.79 K/mm3 (4.00-11.30)
[2025-02-16 17:29] LABS: Albumin, Blood 3.7 g/dL (3.4-5.0); Albumin/Globulin Ratio 1.3 (0.8-1.8); Bilirubin, Total 1.6 mg/dL (0.1-1.0); Bun/Creatinine Ratio 19.2 (12.0-20.0); Calcium, Blood 8.9 mg/dL (8.5-10.1); Creatinine, Blood 0.94 mg/dL (0.60-1.20); Globulin, Blood 2.9 g/dL (2.2-4.0); Potassium, Blood 4.6 mmol/L (3.5-5.5); Total Protein, Blood 6.6 g/dL (6.4-8.2)
[2025-02-16 18:51] LABS: Influenza A, PCR NEGATIVE (NEGATIVE); Influenza B, PCR NEGATIVE (NEGATIVE); Resp Syncytial Virus, PCR NEGATIVE (NEGATIVE); SARS-Cov-2 (COVID-19) PCR, MMC NEGATIVE (NEGATIVE)
[2025-02-16 19:40] LABS: Source, Urine Suprapubic Cath
[2025-02-16 19:53] LABS: Bilirubin, Urine Neg (Neg); Blood, Urine 4+ (Neg); Glucose Qualitative, Urine Neg (Neg); Ketones, Urine Neg (Neg); Leukocyte Esterase, Urine 2+ (Neg); Nitrite, Urine Neg (Neg); Protein, Urine 1+ (Neg); Specific Gravity, Urine 1.005 (1.003-1.022); Urobilinogen, Urine NORM (Normal)
[2025-02-16 19:54] LABS: Appearance, Urine Clear (Clear); Color, Urine Pale Yellow (P-Yellow)
[2025-02-16 19:57] LABS: Bacteria Few /hpf; Squamous Epithelial Cells Not Seen /hpf (Few)
[2025-02-16] MEDS ORDERED: Sod Phosphate/Sod Biphosphate 132 ML BTL PR ONE (20:05)
[2025-02-16] MEDS ORDERED: Acetaminophen 500 MG Tab PO ONE (20:05)
[2025-02-16] MEDS ORDERED: Meropenem 1,000 MG in NS 100 ML IV ONE (20:55)
[2025-02-16] MEDS ORDERED: Ondansetron HCl 2 MG / ML 2ML Vial IV PRN (21:25)
[2025-02-16] MEDS ORDERED: HYDROcodone 5-APAP 325 TAB PO PRN (21:25)
[2025-02-16] MEDS ORDERED: Lactated Ringer's 1,000 ML IV SCH (21:25)
[2025-02-16] MEDS ORDERED: Acetaminophen 325 MG TABLET PO PRN (21:30)
[2025-02-16] MEDS ORDERED: NS 1,000 ML IV ONE (22:00)
[2025-02-16 23:18] VITALS: BP 117/68
[2025-02-17 04:22] VITALS: BP 120/71
[2025-02-17] MEDS ORDERED: NS 250 ML IV PRN (04:55)
--- NOTE | 2025-02-17 05:05 | NUR ---
SHIFT SUMMARY ADMISSION 02/16/25 FOR SEPSIS, TOXIC METABOLIC ENCEPHALOPATHY, ESBL & PSEUDOMONAS UTI ASSOCIATED WITH SUPRAPUBIC CATHETER, AND CONSTIPATION. CONTACT PRECAUTION. FULL CODE. HX ORGANIC BRAIN SYNDROME AND FREQUENT UTI. PT IN ASSISTED LIVING AT [facility]. BROTHER VISITS. BASELINE COMMUNICATION IS VERY DIFFICULT WITH MINIMAL, INTERMITTENT SPEECH AND NODDING. STARTLES EASILY. HARD OF HEARING. FOLLOWS SOME COMMANDS APPROPRIATELY AND PARTICIPATES DURING TRANSFER WITH 2-PERSON LIFT ASSIST. ON BEDREST WITH UNKNOWN BASELINE. 1 LARGE BM PASSED IN DEPENDS THIS EVENING AFTER 1 FLEET ENEMA GIVEN IN ED AFTER 7 DAYS WITHOUT BM. SUPRAPUBIC CATH 16 PUERTO RICAN REPLACED IN ED 02/16/25. TAKES MEDICATIONS PO WITH WATER IN HIGH GRACIA POSITION. LR INFUSION @ 125ML/HR IN 20g IV IN RFA.
[2025-02-17 05:51] LABS: BASOPHILS ABSOLUTE AUTO 0.05 K/mm3 (0.00-0.23); BASOPHILS PERCENT AUTO 0 % (0-2); EOSINOPHILS PERCENT AUTO 0 % (0-6); Hematocrit 32.7 % (37.0-53.0); Hemoglobin 11.3 g/dL (13.5-17.5); IMMATURE GRAN ABSOLUTE AUTO 0.23 K/mm3 (0.00-0.10); IMMATURE GRAN PERCENT AUTO 1 % (0-1); LYMPHOCYTES ABSOLUTE AUTO 0.75 K/mm3 (0.84-5.20); LYMPHOCYTES PERCENT AUTO 3 % (21-46); MONOCYTES ABSOLUTE AUTO 1.79 K/mm3 (0.16-1.47); MONOCYTES PERCENT AUTO 7 % (4-13); Mean Corpuscular HGB 31.8 pg (26.0-34.0); Mean Corpuscular HGB Conc 34.6 g/dL (31.5-36.5); Mean Corpuscular Volume 92 fL (80-100); Mean Platelet Volume 11.3 fL (9.1-12.4); NEUTROPHILS PERCENT AUTO 89 % (41-73); Platelet Count 188 K/mm3 (150-400); RDW Coefficient Variation 13.9 % (11.7-14.2); RDW Standard Deviation 47.7 fL (35.1-46.3); Red Blood Cell Count 3.55 M/mm3 (4.30-5.90); White Blood Cell Count 25.12 K/mm3 (4.00-11.30)
[2025-02-17 06:15] LABS: Bun/Creatinine Ratio 19.5 (12.0-20.0); Calcium, Blood 8.4 mg/dL (8.5-10.1); Creatinine, Blood 0.87 mg/dL (0.60-1.20); Magnesium, Blood 2.3 mg/dL (1.6-2.4); Potassium, Blood 3.9 mmol/L (3.5-5.5)
[2025-02-17] MEDS ORDERED: Meropenem 1,000 MG in NS 100 ML IV SCH (06:30)
[2025-02-17 07:37] VITALS: BP 110/67
[2025-02-17] MEDS ORDERED: Lactobacil 2-S.Thermo-Bifido 1 1 Cap PO SCH (09:00)
[2025-02-17] MEDS ORDERED: Docusate Sodium 100 MG Cap PO SCH (09:00)
[2025-02-17] MEDS ORDERED: AmLODIPine Besylate 5 MG Tab PO SCH (09:00)
[2025-02-17] MEDS ORDERED: Enoxaparin 40 MG/0.4 ML SYR SC SCH (09:00)
[2025-02-17] MEDS ORDERED: QUEtiapine Fumarate 100 MG Tab PO SCH (09:00)
--- NOTE | 2025-02-17 12:05 | NUR ---
PTS BROTHER BROUGHT IN PATIENTS HEARING AIDES AND UPPER DENTURE. PATIENT DOES NOT HAVE A LOWER DENTURE
--- NOTE | 2025-02-17 16:10 | NUR ---
SHIFT SUMMARY: PATIENT A/O TO SELF, MUMBLED SPEECH c LIMITED WORDS AND COWLITZ. PATIENT WEARS HEARING AID TO BILAT EAR. PATIENT REPORTS PAIN TO ARMS AND BACK, MEDICATED FOR PAIN PER EMAR c GOOD EFFECT. PATIENT FEED ASSIST c ALL MEALS, CHRONIC SUPRAPUBIC CATH, PATENT DRAINING ALEKSANDR COLOR URINE TO GRAVITY. SUPRA CATH CARE DONE. PATIENT RECEIVED SCHEDULED MEDS PER EMAR. VITAL SIGNS REVIEWED. BED ALARM ON FOR SAFETY. CALL LIGHT IN REACH. PATIENT CAREGIVER AT [facility] NAME ANSHU CALLED TODAY AND ASKED FOR UPDATES. UPDATES GIVEN TO ANSHU OVER THE PHONE, VERBALIZED UNDERSTANDING AND NO FURTHER QUESTIONS. PATIENT BROTHER (FRANCINE) VISITED TODAY AND SAT c PATIENT FOR ABOUT AN HOUR AND LEFT.
[2025-02-17 19:55] VITALS: BP 116/62
[2025-02-17] MEDS ORDERED: Sennosides 8.6 MG Tab PO SCH (21:00)
[2025-02-18 05:09] VITALS: BP 131/65
--- NOTE | 2025-02-18 05:24 | NUR ---
SHIFT SUMMARY PT ALERT TO SELF. MORE ALERT THAN PREVIOUS NIGHT. UNSURE OF PT's COGNITIVE BASELINE BUT SOME CONFUSION NOTED. PT REQUESTED SEVERAL TIMES DURING THE NIGHT THAT HE NEEDED TO GET DRESSED TO GET TO DR APPOINTMENT. PT COULD NOT BE REORIENTED TO SITUATION. PT USES CALL LIGHT BUT WILL ALSO CALL OUT. DID NOT SEEM TO SLEEP DURING THE NIGHT. LR INFUSING PER EMAR. IV ABX GIVEN PER ORDER. PT CONTINUES TO HAVE SOFT BM's AND IS PASSING GAS. PT DID NOT APPEAR TO BE IN PAIN USING THE FLACC SCALE. SUPRAPUBIC CATH IN PLACE AND DRAINING LIGHT YELLOW URINE. CATH CARE COMPLETED. BED ALARM ON. BED IN LOWEST POSITION AND CALL LIGHT IN REACH.
[2025-02-18 06:29] LABS: BASOPHILS ABSOLUTE AUTO 0.03 K/mm3 (0.00-0.23); BASOPHILS PERCENT AUTO 0 % (0-2); EOSINOPHILS ABSOLUTE AUTO 0.07 K/mm3 (0.00-0.68); EOSINOPHILS PERCENT AUTO 1 % (0-6); Hematocrit 33.6 % (37.0-53.0); Hemoglobin 11.6 g/dL (13.5-17.5); IMMATURE GRAN ABSOLUTE AUTO 0.05 K/mm3 (0.00-0.10); IMMATURE GRAN PERCENT AUTO 0 % (0-1); LYMPHOCYTES ABSOLUTE AUTO 0.43 K/mm3 (0.84-5.20); LYMPHOCYTES PERCENT AUTO 4 % (21-46); MONOCYTES ABSOLUTE AUTO 0.98 K/mm3 (0.16-1.47); MONOCYTES PERCENT AUTO 8 % (4-13); Mean Corpuscular HGB 32.4 pg (26.0-34.0); Mean Corpuscular HGB Conc 34.5 g/dL (31.5-36.5); Mean Corpuscular Volume 94 fL (80-100); Mean Platelet Volume 11.5 fL (9.1-12.4); NEUTROPHILS ABSOLUTE AUTO 10.12 K/mm3 (1.96-9.15); NEUTROPHILS PERCENT AUTO 87 % (41-73); Platelet Count 169 K/mm3 (150-400); RDW Standard Deviation 48.1 fL (35.1-46.3); Red Blood Cell Count 3.58 M/mm3 (4.30-5.90); White Blood Cell Count 11.68 K/mm3 (4.00-11.30)
[2025-02-18 07:01] LABS: Bun/Creatinine Ratio 15.3 (12.0-20.0); Calcium, Blood 8.4 mg/dL (8.5-10.1); Creatinine, Blood 0.78 mg/dL (0.60-1.20); Potassium, Blood 3.7 mmol/L (3.5-5.5)
[2025-02-18 08:48] VITALS: BP 140/70
[2025-02-18] MEDS ORDERED: Lisinopril 20 MG Tab PO SCH (09:00)
[2025-02-18 16:32] VITALS: BP 134/71
--- NOTE | 2025-02-18 17:24 | NUR ---
SHIFT SUMMARY PT AOX1/2, COOPERATIVE, ABLE TO MAKE NEEDS KNOWN TO SOME DEGREE. PT HAS BEEN BEDREST FOR DURATION OF SHIFT. DID NOTIFY STAFF OF INCONTINENT EPISODE AT BEGINNING OF SHIFT AND THEN DID NOT NOTIFY AT 1700;PERFORMED 2 HOUR CHECK AND DISCOVERED BM. PT MEDS WHOLE WITH WATER. SUPRAPUBIC INTACT AND DRAINING TO GRAVITY. TOELRATING PO AND IV MEDICATION. BED IN LOWEST POSITION, CALL LIGHT WITHIN REACH.
[2025-02-18] MEDS ORDERED: Vancomycin HCL 1,500 MG in NS 250 ML IV ONE (17:50)
[2025-02-18 19:52] VITALS: BP 120/74
[2025-02-18] MEDS ORDERED: Pravastatin Sodium 20 MG Tab PO SCH (21:00)
[2025-02-19 03:45] VITALS: BP 126/67
[2025-02-19] MEDS ORDERED: Vancomycin HCL 1,000 MG in NS 250 ML IV SCH (06:00)
--- NOTE | 2025-02-19 06:30 | NUR ---
SHIFT SUMMARY PT ALERT AND ORIENTED TIMES 1-2. PT IS ADMITTED FOR SEPSIS UTI- ALTERED MENTAL STATE. PT IS POSITIVE FOR ESBL URINE. NON COMPLIANT WITH C-PAP AT HOME. PT IS EXTREMELY HARD OF HEARING. PT HAS HEARING AIDS BUT SEEMS TO BE SOME FEED BACK THAT YOU CAN HEAR, BUT DOES NOT SEEM TO BOTHER PT. IT DOES, HOWEVER, MAKE COMMUNICATION DIFFICULT. PT IS ABLE TO EXPRESS THAT HE HAS HAD A BOWEL MOVEMENT. PT HAS SUPRA PUEBIC CATH PALCED. WHICH IS DRAINING WELL. PT NEEDS HELP FEEING AND TAKING MEDXS. PT IS NOT ON TELE OR SUPPLEMENTAL OXYGEN. CALL LIGHT WITHIN REACH, RAILS TIMES 2, BED IN LOW POSITION.
[2025-02-19 06:31] LABS: BASOPHILS ABSOLUTE AUTO 0.03 K/mm3 (0.00-0.23); BASOPHILS PERCENT AUTO 1 % (0-2); EOSINOPHILS ABSOLUTE AUTO 0.02 K/mm3 (0.00-0.68); EOSINOPHILS PERCENT AUTO 0 % (0-6); Hematocrit 34.9 % (37.0-53.0); Hemoglobin 11.9 g/dL (13.5-17.5); IMMATURE GRAN ABSOLUTE AUTO 0.09 K/mm3 (0.00-0.10); IMMATURE GRAN PERCENT AUTO 2 % (0-1); LYMPHOCYTES ABSOLUTE AUTO 0.39 K/mm3 (0.84-5.20); LYMPHOCYTES PERCENT AUTO 7 % (21-46); MONOCYTES ABSOLUTE AUTO 0.54 K/mm3 (0.16-1.47); MONOCYTES PERCENT AUTO 9 % (4-13); Mean Corpuscular HGB 31.5 pg (26.0-34.0); Mean Corpuscular HGB Conc 34.1 g/dL (31.5-36.5); Mean Corpuscular Volume 92 fL (80-100); Mean Platelet Volume 10.9 fL (9.1-12.4); NEUTROPHILS ABSOLUTE AUTO 4.88 K/mm3 (1.96-9.15); NEUTROPHILS PERCENT AUTO 82 % (41-73); Platelet Count 162 K/mm3 (150-400); RDW Coefficient Variation 14.2 % (11.7-14.2); RDW Standard Deviation 48.2 fL (35.1-46.3); Red Blood Cell Count 3.78 M/mm3 (4.30-5.90); White Blood Cell Count 5.95 K/mm3 (4.00-11.30)
[2025-02-19 06:52] LABS: Bun/Creatinine Ratio 14.3 (12.0-20.0); Calcium, Blood 7.9 mg/dL (8.5-10.1); Creatinine, Blood 0.77 mg/dL (0.60-1.20); Potassium, Blood 3.4 mmol/L (3.5-5.5)
[2025-02-19 09:16] VITALS: BP 116/93
[2025-02-19] MEDS ORDERED: Potassium Chloride 20 MEQ TabCR PO ONE (09:55)
--- NOTE | 2025-02-19 11:30 | NUR ---
PT HOME FACILITY CALLED AT 1122 TO REQUEST ADVANCE NOTICE IF PT DISCHARGED. THEIR FACILITY REQUIRES AN IN-PERSON SCREENING BEFORE RE-ADMISSION, ADVANCE NOTICE GREATLY APPRECIATED
[2025-02-19 16:30] VITALS: BP 132/84
--- NOTE | 2025-02-19 17:26 | NUR ---
SHIFT SUMMARY: PATIENT AWAKE AND ALERT THIS MORNING, PLEASANT MOOD; HAS BEEN VERY TIRED AND SLEPT FOR MUCH OF THE DAY. BOOSTED AND REPOSITIONED NEEDED, COOPERATIVE. PATIENT ABLE TO ROLL WITH ASSISTANCE TO CHANGE ATTENDS THIS AFTERNOON. PREFERS TO TAKE MEDICATIONS ONE PILL AT A TIME WITH WATER, SPLIT LARGE PILLS. IRREGULAR HEART RATE OBSERVED UPON ASSESSMENT AND NOTED. PATIENT HAS HAD MINIMAL PAIN TODAY. REQUESTED PAIN RELIEF THIS AFTERNOON, ADMINISTERED TYLENOL PER THE DEC. NO ACUTE EVENTS. PATIENT CURRENTLY ASLEEP WITH CALL LIGHT WITHIN REACH.
--- NOTE | 2025-02-19 18:44 | NUR ---
SHIFT SUMMARY: PATIENT ALERT & ORIENTED X4, PLEASANT AND COOPERATIVE. STANDBY ASSIST TO THE BATHROOM, PT USES WALKER AND CALLS FOR ASSISTANCE APPROPRIATE. GAIT WEAK AND PT EXPERIENCES SOME SOB AND "DIZZY" FEELING ON EXERTION. PT DENIES ANY PAIN. REQUESTED LOZENGES FOR DRY THROAT. TAKES MEDS WHOLE WITH WATER AND WITHOUT DIFFICULTY. NO ACUTE EVENTS TODAY. PATIENT RESTING IN RECLINER WITH LEGS ELEVATED AND CALL LIGHT WITHIN REACH.
--- NOTE | 2025-02-19 18:52 | NUR ---
PT SLEPT MOST OF THE DAY AND DECLINED LUNCH, BUT ATE 90% OF HIS DINNER AND DRANK ONE ENSURE SHAKE.
--- NOTE | 2025-02-19 19:11 | NUR ---
IV FLUID INFUSED - 2940 ML; UNSURE IF PUMPS WERE CLEARED FROM PREVIOUS SHIFT. CLEARED PUMPS AT 1900.
[2025-02-19 19:38] VITALS: BP 117/75
[2025-02-20 02:45] VITALS: BP 139/91
--- NOTE | 2025-02-20 03:22 | NUR ---
SHIFT SUMMARY NO ACUTE EVENTS DURING THIS SHIFT. SCHEDULED BOWEL MEDICATIONS ADMINISTERED @HS. PT HAD A MEDIUM LOOSE, BROWN STOOL. SUPRAPUBIC CATHETER DRAINING YELLOW COLOR URINE. PT IS A/O X3-4, MUMBLED SPEECH, ABLE TO MAKE HIS NEEDS KNOWN AND COOPERATIVE WITH CARE. LR INFUSING ORDERED. PT DENIES PAIN AND DISCOMFORT. BED AT THE LOWEST POSITION, CALL LIGHT W/I REACH. MEDICATIONS ADMINISTERED 1@TIME, WHOLE WITH H2O. PT TOLERATING WELL.
[2025-02-20 06:44] LABS: Bun/Creatinine Ratio 19.7 (12.0-20.0); Calcium, Blood 7.8 mg/dL (8.5-10.1); Creatinine, Blood 0.66 mg/dL (0.60-1.20); Potassium, Blood 3.4 mmol/L (3.5-5.5)
[2025-02-20 08:21] VITALS: BP 136/78
[2025-02-20] MEDS ORDERED: Potassium Chloride 20 MEQ TabCR PO ONE (10:00)
--- NOTE | 2025-02-20 12:37 | NUR ---
GAVE UPDATE TO LESLYE AT [facility] INSTEAD OF ANSHU GRIMES. LESLYE REPORTS THEY NEED 24 HOUR NOTICE OF DISCHARGE SO BIAS MACHINE OPERATOR CAN ASSESS STATUS OF PT IN PERSON BEFORE GOING BACK TO [facility].
[2025-02-20 16:11] VITALS: BP 133/65
--- NOTE | 2025-02-20 18:25 | NUR ---
SHIFT SUMMARY PT AO3/4, COOPERATIVE, ABLE TO MAKE NEEDS KNOWN. PT IS BEDREST, TOLERATING PO AND IV MEDICATIONS. SUPRAPUBIC CATH INTACT AND DRAINING TO GRAVITY. NO OTHER EVENTS TOOK PLACE THIS SHIFT. SHOULD RETURN TO [facility] AT DISCHARGE.
[2025-02-20 19:26] VITALS: BP 117/74
--- NOTE | 2025-02-21 04:37 | NUR ---
SHIFT SUMMARY PT ALERT ORIENTED TO SELF AND PLACE. HES HARD TO UNDERSTAND DUE TO HIUS MUMBLING. HE HAS A HX OF ORGANIC BRAIN SYNDROME. REMAINS ON MEROPENUM Q8HR FOR UTI, HES DUE TO STAY HERE FOR 7 DAYS ON IV ANTIBIOTICS. REMAINS ON BEDREST AND IS KEPT REPOSITIONED AND TURNED. HE HAS A SUPRAPUBIC CATHETER DRAINING YELLOW URINE. HE DRINKS FLUIDS WELL. RESTING IN BED AT THIS TIME WITH CALL LIGHT IN REACH
[2025-02-21 04:55] VITALS: BP 126/81
[2025-02-21 05:44] LABS: Bun/Creatinine Ratio 16.6 (12.0-20.0); Calcium, Blood 8.2 mg/dL (8.5-10.1); Creatinine, Blood 0.72 mg/dL (0.60-1.20); Potassium, Blood 3.8 mmol/L (3.5-5.5)
[2025-02-21 08:08] VITALS: BP 132/73
[2025-02-21 14:01] VITALS: BP 112/76
--- NOTE | 2025-02-21 18:33 | NUR ---
"Spiritual Care Visit | Family Request At the request of the Pts. brother, this contracting executive came to bedside. Pt. welcomes my visit, but displays some evidence of confusion. Pt. was also being served dinner, so this contracting executive offered to visit the Pt. in the morning. Will remain available to the Pt. per the families request."
[2025-02-21 19:45] VITALS: BP 141/67
[2025-02-22 04:40] VITALS: BP 131/80
--- NOTE | 2025-02-22 06:20 | NUR ---
SHIFT SUMMARY PT ALERT ORIENTED TO SELF AND PLACE ABLE TO VERBALIZE NEEDS BUT HE MUMBLES AND HES HARD TO UNDERSTAND.VSS ON RA SATTING AT 97%. NO C/O PAIN. HE DID HAVE 1X INCONTINENCE STOOL. REMAINS ON MEROPENEM Q8HR. HES SUPPOSED TO GET ANTIBIUOTICS X 7 DAYS HERE THEN DC. HE HAS A SUPRAPUBIC CONTRERAS. RESTING IN BED AT THIS TIME WITH CALL LIGHT IN REACH
[2025-02-22 07:21] VITALS: BP 142/73
--- NOTE | 2025-02-22 15:29 | NUR ---
Pt. is awake in bed. Brother is at bedside when he welcomes my visit. Pts. brother verbalizes that the Pt. lives at an an adult care facility in [facility]. Pt. is [place] and speaks with a distinctive slur, but does attempt to participate in conversation. Matters of nelly and beleif are consdiered. Pt. welcomed prayer. Prayed with Pt. Pt. and his brother verbalized gratitude for the spiritual care visit.
[2025-02-22 15:32] VITALS: BP 103/70
--- NOTE | 2025-02-22 19:42 | NUR ---
SUMMARY TOLERATED BOLUS TUBE FEEDING AT LUNCH AND DINNER. PURCHASING AND FISCAL CLERK RN TO START 355 GOAL BOLUS TONIGHT. TRIED EDUCATING PT ABOUT HOW TO ADMINISTER HIMSELF, PT'S BASELINE TREMORS MADE IT DIFFICULT FOR HIM TO HOLD AND POUR. PT ALSO REQUIRED LOTS OF REMINDING TO NOT PULL TUBE TOO FAW AWAY FROM HIS BODY. PT TO HAVE AUNT WHO HE LIVES WITH COME IN TO RECEIVE EDUCATION WELL TOMORROW. PT WAS NOT ABLE TO SUCCESSFULLY ADMINISTER TODAY HIMSELF. PT ALSO SEEMED UNMOTIVATED AND KEPT LOOKING TO THE MUTED TV WHILE I WAS TRYING TO EDUCATE HIM. PRN TYLENOL ADDED BY DR. RED TODAY FO RMILD PAIN TO PEG TUBE SITE. PATIENTS EYES APPEAR RED AND MILDLY INFLAMED. PT STATES THEY ARE ITCHY WELL. PASSED ON TO DAY SHIFT RN PATIENT THINKS HIS ALLERGIES ARE FLARING UP.
[2025-02-22 19:43] VITALS: BP 116/64
[2025-02-23 05:09] VITALS: BP 159/76
--- NOTE | 2025-02-23 05:36 | NUR ---
SHIFT SUMMARY; PATIENT SLEPT IN SHORT INTERVALS, AWAKE OFTEN, SP DRAING CLEAR URINE.
[2025-02-23 07:29] VITALS: BP 146/99
[2025-02-23] MEDS ORDERED: ACET325 PO (14:04)
[2025-02-23] MEDS ORDERED: PRAVASTATIN SOD10 MG PO (14:05)
[2025-02-23] MEDS ORDERED: SENN187 PO (15:42)
== END 2025-02-23 16:06 | disposition home health service (06) | DRG 698 ==
LOC: ER 16:32 → MEDS 21:20 → ERHOLD 21:20 → MEDS 21:20
PROVIDERS: Family Medicine; Internal Medicine; Nurse Practitioner Acute Care; Student in an Organized Health Care Education/Training Program; ADMIT Internal Medicine
DX: T83.510A Infection and inflammatory reaction due to cystostomy catheter, initial encounter (principal); A41.52 Sepsis due to Pseudomonas; R65.20 Severe sepsis without septic shock; G92.8 Other toxic encephalopathy; N39.0 Urinary tract infection, site not specified; Z16.12 Extended spectrum beta lactamase (ESBL) resistance; E87.1 Hypo-osmolality and hyponatremia; N13.8 Other obstructive and reflux uropathy; F06.2 Psychotic disorder with delusions due to known physiological condition; Y73.2 Prosthetic and other implants, materials and accessory gastroenterology and urology devices associated with adverse incidents; I10 Essential (primary) hypertension; E11.9 Type 2 diabetes mellitus without complications; D64.9 Anemia, unspecified; F79 Unspecified intellectual disabilities; K59.00 Constipation, unspecified; N40.1 Benign prostatic hyperplasia with lower urinary tract symptoms; G89.29 Other chronic pain; M54.2 Cervicalgia; E86.1 Hypovolemia; E87.6 Hypokalemia; Z79.82 Long term (current) use of aspirin; Z87.891 Personal history of nicotine dependence
CPT/HCPCS: 0241U; 36415; 71045; 74177; 80048; 80053; 81001; 83605; 83690; 83735; 85025; 87040; 87077; 87086; 87186; 96365-59; 99285-25; A9270; J1650; J2185; J3370; J7050; J7120; Q9967

== ENCOUNTER → 2025-04-18 | Outpatient (CLI) | payer MEDICARE, OTHER ==
[~2025-04-18] MED LIST changes: +ACET325 PO; +PRAVASTATIN SOD10 MG PO; +SENN187 PO
[2025-04-18 11:51] LABS: BASOPHILS ABSOLUTE AUTO 0.04 K/mm3 (0.00-0.23); BASOPHILS PERCENT AUTO 1 % (0-2); EOSINOPHILS ABSOLUTE AUTO 0.12 K/mm3 (0.00-0.68); EOSINOPHILS PERCENT AUTO 2 % (0-6); Hematocrit 35.6 % (37.0-53.0); Hemoglobin 12.2 g/dL (13.5-17.5); IMMATURE GRAN ABSOLUTE AUTO 0.09 K/mm3 (0.00-0.10); IMMATURE GRAN PERCENT AUTO 1 % (0-1); LYMPHOCYTES ABSOLUTE AUTO 1.03 K/mm3 (0.84-5.20); LYMPHOCYTES PERCENT AUTO 15 % (21-46); MONOCYTES ABSOLUTE AUTO 0.89 K/mm3 (0.16-1.47); MONOCYTES PERCENT AUTO 13 % (4-13); Mean Corpuscular HGB Conc 34.3 g/dL (31.5-36.5); Mean Corpuscular Volume 94 fL (80-100); NEUTROPHILS ABSOLUTE AUTO 4.81 K/mm3 (1.96-9.15); NEUTROPHILS PERCENT AUTO 69 % (41-73); NRBC ABSOLUTE 0.00 K/mm3 (0.00-0.02); NRBC Auto 0.0 /100 WBC (0.0-0.2); Platelet Count 288 K/mm3 (150-400); RDW Coefficient Variation 13.3 % (11.7-14.2); RDW Standard Deviation 45.9 fL (35.1-46.3)
[2025-04-18 12:06] LABS: Alanine Aminotransfer (ALT/SGP 34.0 U/L (12-78); Albumin, Blood 3.3 g/dL (3.4-5.0); Albumin/Globulin Ratio 1.1 (0.8-1.8); Anion Gap 8.0 mmol/L (3-11); Aspartate Aminotrans (AST/SGOT 20.0 U/L (12-37); Bilirubin, Total 0.5 mg/dL (0.1-1.0); Blood Urea Nitrogen 9.0 mg/dL (8-24); CO2, Blood 26.0 mmol/L (21-32); Calcium, Blood 8.6 mg/dL (8.5-10.1); Chloride, Blood 105.0 mmol/L (98-108); Creatinine, Blood 0.99 mg/dL (0.60-1.20); Ferritin, Serum 370.0 ng/mL (26-388); Globulin, Blood 3.0 g/dL (2.2-4.0); Glucose, Blood 84.0 mg/dL (70-99); Potassium, Blood 4.3 mmol/L (3.5-5.5); Sodium, Blood 135.0 mmol/L (136-145); Total Iron Binding Capacity 166.0 ug/dL (250-450); Total Protein, Blood 6.3 g/dL (6.4-8.2)
[2025-04-18 12:34] LABS: Creatinine, Urine Random 40.4 mg/dL (27.00-270.00); Microalb/Creat Ratio UR, Rand 138.614 mg/g (0.000-30.000); Microalbumin, Random Urine 56.0 mg/L (0.000-20.000)
== END ==
LOC: LAB SHORT 10:42 → LAB 10:42
PROVIDERS: Physician Assistant
DX: N40.1 Benign prostatic hyperplasia with lower urinary tract symptoms (principal); D64.9 Anemia, unspecified; E11.9 Type 2 diabetes mellitus without complications; N39.0 Urinary tract infection, site not specified
CPT/HCPCS: 80053; 82043; 82570; 82728; 83036; 83540; 83550; 85025